=== PATIENT | female | born 1960 | race American Indian/Alaskan Native ===

== ENCOUNTER 2016-08-29 15:10 | Outpatient (CLI) | payer OTHER ==
--- NOTE | 2016-08-29 16:01 | Mammography Report ---
BILATERAL MAMMOGRAM: FINDINGS: There are scattered fibroglandular densities (approximately 25%-50% glandular). No mass, distortion, suspicious calcification, or skin change is seen. No significant change when compared to prior exams in 2015. CAD was utilized. IMPRESSION: Negative mammogram. There is no mammographic evidence of malignancy. RECOMMENDATION: Follow-up per ACS guidelines. BI-RADS CATEGORY: 1 = Negative ACR BI-RADS MAMMOGRAPHIC CODES: 0 = Needs additional imaging evaluation; 1 = Negative; 2 = Benign; 3 = Probably benign; 4 = Suspicious; 5 = Malignant; 6 = Known biopsy-proven malignancy COMMENT: 1. Dense breast tissue, i.e., adenosis, fibrocystic changes, etc., may obscure an underlying neoplasm. 2. Approximately 10% of cancers are not detected with mammography. 3. A negative mammography report should not delay biopsy if a clinically suspicious mass is present. COMMENT: Patient follow-up letters are generated in [employer].
--- NOTE | 2016-08-29 16:26 | XRay Report ---
ROUTINE CHEST, TWO VIEWS: TB screening. PA and lateral views demonstrate the heart and mediastinal contour to be of normal size and shape. The lungs are clear and fully expanded and the soft tissues and bony structures are normal. No evidence of TB and no change compared to March 17, 2015. IMPRESSION: Normal study.
== END 2016-08-29 15:11 | disposition home or self-care (01) ==
LOC: SPVIMAG 15:10
PROVIDERS: ATTEND Family Medicine
DX: Z12.31 Encounter for screening mammogram for malignant neoplasm of breast (principal); Z11.1 Encounter for screening for respiratory tuberculosis
CPT/HCPCS: 71020; G0202; 77067

== ENCOUNTER 2018-09-10 08:47 | Outpatient (CLI) | payer OTHER ==
--- NOTE | 2018-09-11 10:09 | Mammography Report ---
BILATERAL DIGITAL SCREENING MAMMOGRAM with CAD: 09/10/18 08:47:00 CLINICAL: Routine screening. COMPARISON: 08/29/16 FINDINGS: There are bilateral scattered areas of fibroglandular density.No mass, architectural distortion or suspicious calcifications. IMPRESSION: No mammographic evidence of malignancy. BI-RADS CATEGORY: 1 -- Negative RECOMMENDATION: Routine mammographic screening in one year. COMMENT: Patient follow-up letters are generated by our [employer] application.
== END 2018-09-10 08:48 | disposition home or self-care (01) ==
LOC: SPVWC 08:47
PROVIDERS: ATTEND Internal Medicine
DX: Z12.31 Encounter for screening mammogram for malignant neoplasm of breast (principal)
CPT/HCPCS: 77067

== ENCOUNTER 2020-12-30 08:58 | Outpatient (CLI) | payer BC ==
--- NOTE | 2020-12-30 12:51 | Ultrasound Report ---
ULTRASOUND ABDOMEN, COMPLETE INDICATION / CLINICAL INFORMATION: GENERALIZED ABDOMINAL PAIN. COMPARISON: CT abdomen/pelvis without contrast 08/22/2010. FINDINGS: Technically limited exam. PANCREAS: Not well visualized. ABDOMINAL AORTA: No significant abnormality. IVC: No significant abnormality. LIVER: The liver is normal in size measuring 15.6 cm . No evidence of focal hepatic lesion. Normal he patopedal blood flow within the main portal vein. GALLBLADDER: Not well visualized. No evidence of gallstones. BILE DUCTS: No significant abnormality. Common bile duct measures 3 mm. KIDNEYS: Right: The right kidney measures 9.7 cm. No significant abnormality. Left: The left kidney measures 10.7 cm. No significant abnormality. SPLEEN: The spleen measures 7.6 cm. No significant abnormality. FREE FLUID: None. ADDITIONAL FINDINGS: None. IMPRESSION: 1. Technically limited exam. 2. No significant abnormality of the abdomen. Scribed by: Rosa Ghotra RDMS, RVT Scribed: 12/30/2020 10:46 AM I have reviewed the images, agree with this report, and edited this report as needed. Signer Name: Morgan Ponce MD Signed: 12/30/2020 12:47 PM Workstation Name: [id number]
--- NOTE | 2020-12-30 13:09 | Mammography Report ---
DIGITAL SCREENING MAMMOGRAM WITH CAD, 12/30/2020 CLINICAL INFORMATION / INDICATION: Routine screening mammography. SCREENING MAMMO TECHNIQUE: Digital bilateral 2D mammography was obtained in the craniocaudal and mediolateral obliqu e projections. This examination was interpreted with the benefit of Computer-Aided Detection analysis . COMPARISON: 02/13/2014 through 11/14/2019. FINDINGS: Breast Density: There are scattered areas of fibroglandular density. No dominant mass, suspicious calcifications, or architectural distortion in either breast. IMPRESSION: No mammographic evidence of malignancy. Follow up recommendation: Routine yearly BI-RADS Category 1: Negative. A "normal" or negative report should not discourage follow up or biopsy of a clinically significant f inding. A written summary of these findings will be mailed to the patient. The patient will be entered into a mammography reporting system which will generate a reminder letter for the patient's next appointmen t at the appropriate interval. The [employer] recommends yearly mammograms starting at age 40 and continuing as l lupe as a woman is in good health. Breast MRI is recommended for women with an approximate 20-25% or greater lifetime risk of breast cancer, including women with a strong family history of breast or ova rashad cancer or who have been treated for Hodgkin's disease. Signer Name: Jose Valdez MD Signed: 12/30/2020 1:04 PM Workstation Name: [id number]
== END 2020-12-30 08:59 | disposition home or self-care (01) ==
LOC: SPVWC 08:58
PROVIDERS: ATTEND Internal Medicine
DX: Z12.31 Encounter for screening mammogram for malignant neoplasm of breast (principal); R10.84 Generalized abdominal pain
CPT/HCPCS: 76700; 77067